=== PATIENT | female | born 1940 | race Caucasian/White ===

== ENCOUNTER 2016-10-05 16:58 | Inpatient (IN) | payer MEDICARE, OTHER ==
[~2016-10-05] VITALS: Ht 149.9 cm; Wt 82.1 kg
[2016-10-05 17:17] LABS: BASO % 1 % (0-3); EOS % 4 % (0-3); HEMATOCRIT 37.8 % (36.0-47.0); HEMOGLOBIN 12.7 g/dL (12.0-15.5); LYMPH # 1.4 x10^3/uL (1.0-4.8); LYMPH % 21 % (24-48); MEAN CORPUSCULAR HEMOGLOBIN 30 pg (25-35); MEAN CORPUSCULAR HGB CONC 34 g/dL (31-37); MEAN CORPUSCULAR VOLUME 88 fL (79-100); MONO % 9 % (0-9); NEUT % 64 % (31-73); PLATELET COUNT 256 x10^3/uL (140-400); RED BLOOD COUNT 4.28 x10^6/uL (3.50-5.40); RED CELL DISTRIBUTION WIDTH 14.2 % (11.5-14.5); WHITE BLOOD COUNT 6.6 x10^3/uL (4.0-11.0)
[2016-10-05 17:24] LABS: PROTHROMBIN TIME PATIENT 12.6 SEC (11.7-14.0)
[2016-10-05 17:28] LABS: CALCIUM 8.3 mg/dL (8.5-10.1); CREATININE 0.8 mg/dL (0.6-1.0); GFR 69.9; POTASSIUM 3.3 mmol/L (3.5-5.1)
[2016-10-05 17:34] LABS: ALBUMIN 3.3 g/dL (3.4-5.0); ALBUMIN/GLOBULIN RATIO 0.9 (1.0-1.7); TOTAL BILIRUBIN 0.4 mg/dL (0.2-1.0); TOTAL PROTEIN 6.9 g/dL (6.4-8.2)
--- NOTE | 2016-10-05 17:46 | PHYS DOC ---
Past Medical History Past Medical History: Asthma, Hypertension Past Surgical History: Cholecystectomy, Hysterectomy, Tonsillectomy Alcohol Use: Rarely Drug Use: None Adult General Chief Complaint Chief Complaint: CHEST PAIN HPI HPI Patient is a 76 year old female who presents with chest pain. The patient reports onset of pain 90 minutes prior to arrival while sitting at a slot machine. She reports substernal chest tightness with radiation to bilateral arms & back. Reports associated diaphoresis and nausea, denies shortness of breath. Denies fevers or chills, cough, lower extremity pain or swelling. Denies previous history of similar symptoms. She had one episode of diarrhea prior to EMS transport. Her pain resolved spontaneously and at this time she denies any pain. She received aspirin 324 mg in route to EMS, no other medications were given. She has history of hypertension, denies any CAD, CHF, diabetes. Nonsmoker. Denies family history of CAD. Has a PCP. Review of Systems Review of Systems Constitutional: Denies fever or chills Eyes: Denies change in visual acuity HENT: Denies nasal congestion or sore throat Respiratory: Denies cough or shortness of breath Cardiovascular: Reports chest pain, denies edema GI: Reports nausea & diarrhea. Denies abdominal pain, vomiting, bloody stools Musculoskeletal: Denies back pain or joint pain Integument: Denies rash or skin lesions Neurologic: Denies headache, focal weakness or sensory changes Current Medications Current Medications Current Medications Medications (Trade) Dose Ordered Sig/Leora Start Time Stop Time Status Last Admin Dose Admin Info (Do NOT chart on this entry -- for MONITORING) 1 each PRN DAILY PRN 10/05/16 18:15 10/07/16 18:14 Iohexol (Omnipaque 350 Mg/ml) 100 ml 1X ONCE 10/05/16 18:15 10/05/16 18:16 DC 10/05/16 18:15 100 ML Allergies Allergies Physical Exam Physical Exam Constitutional: obese, no acute distress, non-toxic appearance. HENT: Normocephalic, atraumatic, bilateral external ears normal, oropharynx moist, nose normal. Eyes: PERRLA, EOMI, conjunctiva normal, no discharge. Neck: supple, no stridor. Cardiovascular: RRR, no murmurs, no edema. Lungs & Thorax: LCTAB, no wheezing, no respiratory distress. no reproducible tenderness with palpation over the sternum Abdomen: soft, nontender, nondistended. Skin: Warm, dry, no erythema, no rash. Back: No tenderness. Extremities: No tenderness, no edema. no calf tenderness or swelling. Neurologic: Alert and oriented X 3, no focal deficits noted. Psychologic: Affect normal, judgement normal, mood normal. Current Patient Data Vital Signs Vital Signs Date Time Temp Pulse Resp B/P (MAP) Pulse Ox O2 Delivery O2 Flow Rate FiO2 10/05/16 19:02 86 18 221/104 (143) 93 Room Air 10/05/16 17:00 98.2 98.2 Lab Values Laboratory Tests Test 10/05/16 17:09 White Blood Count 6.6 x10^3/uL (4.0-11.0) Red Blood Count 4.28 x10^6/uL (3.50-5.40) Hemoglobin 12.7 g/dL (12.0-15.5) Hematocrit 37.8 % (36.0-47.0) Mean Corpuscular Volume 88 fL (79-100) Mean Corpuscular Hemoglobin 30 pg (25-35) Mean Corpuscular Hemoglobin Concent 34 g/dL (31-37) Red Cell Distribution Width 14.2 % (11.5-14.5) Platelet Count 256 x10^3/uL (140-400) Neutrophils (%) (Auto) 64 % (31-73) Lymphocytes (%) (Auto) 21 % (24-48) L Monocytes (%) (Auto) 9 % (0-9) Eosinophils (%) (Auto) 4 % (0-3) H Basophils (%) (Auto) 1 % (0-3) Neutrophils # (Auto) 4.3 x10^3uL (1.8-7.7) Lymphocytes # (Auto) 1.4 x10^3/uL (1.0-4.8) Monocytes # (Auto) 0.6 x10^3/uL (0.0-1.1) Eosinophils # (Auto) 0.3 x10^3/uL (0.0-0.7) Basophils # (Auto) 0.0 x10^3/uL (0.0-0.2) Prothrombin Time 12.6 SEC (11.7-14.0) Prothrombin Time INR 1.0 (0.8-1.1) PTT 27 SEC (24-38) Sodium Level 141 mmol/L (136-145) Potassium Level 3.3 mmol/L (3.5-5.1) L Chloride Level 104 mmol/L (98-107) Carbon Dioxide Level 27 mmol/L (21-32) Anion Gap 10 (6-14) Blood Urea Nitrogen 9 mg/dL (7-20) Creatinine 0.8 mg/dL (0.6-1.0) Estimated GFR (Cockcroft-Gault) 69.9 BUN/Creatinine Ratio 11 (6-20) Glucose Level 127 mg/dL (70-99) H Calcium Level 8.3 mg/dL (8.5-10.1) L Total Bilirubin 0.4 mg/dL (0.2-1.0) Aspartate Amino Transferase (AST) 22 U/L (15-37) Alanine Aminotransferase (ALT) 18 U/L (14-59) Alkaline Phosphatase 84 U/L (46-116) Troponin I Quantitative < 0.017 ng/mL (0.000-0.055) WO-Sva-G-Type Natriuretic Peptide 121 pg/mL (0-449) Total Protein 6.9 g/dL (6.4-8.2) Albumin 3.3 g/dL (3.4-5.0) L Albumin/Globulin Ratio 0.9 (1.0-1.7) L Lipase 153 U/L (73-393) Laboratory Tests 10/05/16 17:09 Laboratory Tests 10/05/16 17:09 EKG EKG interpreted by me: NSR rate 83, no acute ST/T wave changes, Q waves in inferior leads, normal intervals, no ectopy.[] Radiology/Procedures Radiology/Procedures PROCEDURE: CT ANGIOGRAPHY CHEST PROCEDURE CTA of the chest with and without contrast HISTORY Chest pain with hypertension. Possible dissection. TECHNIQUE Noncontrast helical CT scanning of the chest was performed. After IV infusion of 90 cc of Omnipaque 300, repeat helical CT scanning of the chest was performed using the thoracic aortic protocol. 2D sagittal and coronal MIP reconstructions were generated. One or more of the following individualized dose reduction techniques were utilized for this study: 1. Automated exposure control 2. Adjustment of the mA and/or kV according to patient size 3. Use of iterative reconstruction technique COMPARISON None available. FINDINGS No pulmonary embolism is evident. No thoracic aortic dissection or aneurysmal dilatation is evident. Calcified atheromatous disease of the thoracic aorta is seen. The caliber of the ascending aorta is 3.9 centimeters. The heart size is normal and no pericardial effusion is seen. Calcified atheromatous disease of the coronary arteries is seen. Calcified mediastinal lymph nodes are seen due to old granulomatous disease. Otherwise no abnormally enlarged thoracic lymphadenopathy is seen. Postoperative changes of the stomach are seen. Small hiatal hernia is evident. There is wall thickening of the distal esophagus. There is a round enhancing nodule of the spleen most likely representing a hemangioma. This measures 2.8 centimeters. Spleen is not enlarged otherwise. There is some linear scarring or atelectasis within the right upper lobe. No lung consolidation or lung mass is seen otherwise. No pleural effusion or pneumothorax is evident. The proximal bronchial tree is patent. No adrenal mass is seen. No osteolytic process is seen. No compression fracture of the thoracic spine is evident. IMPRESSION Mild linear scarring or atelectasis of the right upper lobe. No thoracic aortic dissection or aneurysmal dilatation is seen. No pulmonary embolism. Heart size is normal. Calcified atheromatous disease of the coronary arteries. Small hiatal hernia. There is wall thickening of the distal esophagus which may be seen with reflux esophagitis. 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 Electronically signed by: Bryson Nash MD (October 05, 2016 19:40:36) DICTATED and SIGNED BY: BRYSON NASH MD DATE: 10/05/161939 CXR: interpreted by me: no cardiomegaly, no infiltrate, no pneumothorax, ? wide mediastinum, no previous for comparison [] Course & Med Decision Making Course & Med Decision Making Pertinent Labs and Imaging studies reviewed. (See chart for details) Patient presents with chest pain. Aspirin administered by EMS. Pain resolved at time of arrival. Obtained labs, EKG, chest x-ray, CT chest to rule out dissection. No acute abnormalities identified. Patient presented with hypertension, persistent with recheck here in the emergency department. Gave hydralazine. She had persistently elevated blood pressure as high as 239/112. Recommended admission to the hospital for further evaluation of chest pain and management of accelerated hypertension. Patient agrees with plan of care. Discussed with Dr. Klein who agrees to admit to inpatient status, cardiology consult to Dr. McSweyn. The patient is admitted in stable condition. [] Dragon Disclaimer Dragon Disclaimer This electronic medical record was generated, in whole or in part, using a voice recognition dictation system. Departure Departure Impression: Primary Impression: Chest pain Additional Impressions: Accelerated hypertension Hypokalemia Disposition: ADMITTED INPATIENT Admitting Physician: Sasha Klein Condition: STABLE Problem Qualifiers KATHLEEN SAMUEL MD October 05, 2016 17:46
--- NOTE | 2016-10-05 17:54 | EKG ---
[facility] [address] [place] [address] Test Date: 2016-10-05 Test Time: 17:09:02 Pat Name: MARIA D MCKOY Department: Room: Gender: F [place] Hand: : 1940 Requested By: KATHLEEN SAMUEL Order Number: [id number] Reading MD: Caty Lange Measurements Intervals [place] Rate: 83 P: 19 CO: 210 QRS: -13 QRSD: 84 T: 1 QT: 372 QTc: 443 Interpretive Statements SINUS RHYTHM LEFTWARD AXIS QRS(T) CONTOUR ABNORMALITY CONSISTENT WITH INFERIOR INFARCT AGE UNDETERMINED ABNORMAL ECG RI6.01 No previous ECG available for comparison Electronically Signed On 10-07-2016 17:53:03 CDT by Caty Lange
[2016-10-05] MEDS ORDERED: CONTRAST GIVEN MC PRN (18:15)
[2016-10-05] MEDS ORDERED: IOHEXOL 350 MG/ML 100 ML VIAL. IV ONE (18:15)
[2016-10-05] MEDS ORDERED: hydrALAZINE 20 MG/ML VIAL. IVP ONE (19:30)
--- NOTE | 2016-10-05 19:41 | RAD ---
PROCEDURE CTA of the chest with and without contrast HISTORY Chest pain with hypertension. Possible dissection. TECHNIQUE Noncontrast helical CT scanning of the chest was performed. After IV infusion of 90 cc of Omnipaque 300, repeat helical CT scanning of the chest was performed using the thoracic aortic protocol. 2D sagittal and coronal MIP reconstructions were generated. One or more of the following individualized dose reduction techniques were utilized for this study: 1. Automated exposure control 2. Adjustment of the mA and/or kV according to patient size 3. Use of iterative reconstruction technique COMPARISON None available. FINDINGS No pulmonary embolism is evident. No thoracic aortic dissection or aneurysmal dilatation is evident. Calcified atheromatous disease of the thoracic aorta is seen. The caliber of the ascending aorta is 3.9 centimeters. The heart size is normal and no pericardial effusion is seen. Calcified atheromatous disease of the coronary arteries is seen. Calcified mediastinal lymph nodes are seen due to old granulomatous disease. Otherwise no abnormally enlarged thoracic lymphadenopathy is seen. Postoperative changes of the stomach are seen. Small hiatal hernia is evident. There is wall thickening of the distal esophagus. There is a round enhancing nodule of the spleen most likely representing a hemangioma. This measures 2.8 centimeters. Spleen is not enlarged otherwise. There is some linear scarring or atelectasis within the right upper lobe. No lung consolidation or lung mass is seen otherwise. No pleural effusion or pneumothorax is evident. The proximal bronchial tree is patent. No adrenal mass is seen. No osteolytic process is seen. No compression fracture of the thoracic spine is evident. IMPRESSION Mild linear scarring or atelectasis of the right upper lobe. No thoracic aortic dissection or aneurysmal dilatation is seen. No pulmonary embolism. Heart size is normal. Calcified atheromatous disease of the coronary arteries. Small hiatal hernia. There is wall thickening of the distal esophagus which may be seen with reflux esophagitis. 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 Electronically signed by: Zac Nash MD (October 05, 2016 19:40:36)
[2016-10-05] MEDS ORDERED: NITROGLYCERIN SUBLINGUAL 0.4 MG BOTTLE OF 25. SL PRN (20:15)
[2016-10-05] MEDS ORDERED: MORPHINE SULFATE 2 MG/ML DISP.SYRIN. IV PRN (20:15)
[2016-10-05] MEDS ORDERED: ACETAMINOPHEN 325 MG TABLET. PO PRN (20:15)
[2016-10-05] MEDS ORDERED: ONDANSETRON PF 4 MG/2 ML VIAL. IV PRN (20:15)
[2016-10-05 20:39] VITALS: BP 178/99
[2016-10-05] MEDS ORDERED: BUDE180A IH (20:58)
[2016-10-05] MEDS ORDERED: LOSA100T6 PO (20:59)
[2016-10-05] MEDS ORDERED: FLUT9.9S NS (20:59)
[2016-10-05] MEDS ORDERED: DIPH25CA58 PO (21:01)
[2016-10-05] MEDS ORDERED: diphenhydrAMINE HCL 25 MG CAPSULE PO PRN (21:30)
[2016-10-05] MEDS ORDERED: LOSARTAN POTASSIUM 50 MG TABLET. PO SCH (21:30)
[2016-10-05] MEDS ORDERED: POTASSIUM CHLORIDE 20 MEQ TABLET.ER. PO ONE (21:30)
[2016-10-05] MEDS ORDERED: LABETALOL 20 MG/4 ML DISP.SYRIN. IVP PRN (21:30)
[2016-10-05] MEDS ORDERED: POTASSIUM CHLORIDE 20 MEQ/15 ML ORAL LIQUID. PO ONE (22:45)
[2016-10-05 23:26] VITALS: BP 145/83
--- NOTE | 2016-10-06 00:22 | ACF ---
Admission Forms Criteria CHEST PAIN Clinical Indications for Admission to Inpatient Care (Place 'X' for any and all applicable criteria): Admission is indicated for chest pain and ANY ONE of the following(1)(2)(3)(4)(5 ): [ ]I. Angina with acute coronary syndrome (Also use Myocardial Infarction or Angina guideline) [ ]II. Hemodynamic instability [ ]III. Angina needing acute intervention as indicated by ALL of the following( 11)(12): [ ]a) Unstable angina is present as indicated by angina that is ANY ONE of the following: [ ]i) New onset [ ]ii) Nocturnal [ ]iii) Prolonged at rest [ ]iv) Progressive [ ]b) Angina warrants acute intervention as indicated by ANY ONE of the following: [ ]i) Recurrent angina (e.g, not responding as previously to treatment) [ ]ii) Angina at rest or with low-level activities despite initial medical therapy [ ]iii) New or presumably new ST-segment depression on ECG [ ]iv) Signs or symptoms of heart failure (eg, dyspnea, pulmonary edema) [ ]v) New or worsening mitral regurgitation [ ]vi) Hemodynamic instability [ ]vii) Dangerous arrhythmia (eg, sustained ventricular tachycardia) [ ]viii) History of percutaneous coronary intervention within 6 months [ ]ix) History of coronary artery bypass graft surgery [ ]x) TONY risk score of 2 or greater[A] [ ]xi) History of Diabetes(14) [ ]xii) High-risk cardiac ischemia findings on noninvasive testing (e.g, echocardiogram, treadmill testing, nuclear scan) [ ]xiii) Chronic renal insufficiency (ie, estimated GFR less than 60 mL/min/1.732m) [ ]xiv) Left ventricular ejection fraction less than 40% [ ]IV. Evidence of WI (eg, cardiac biomarkers positive, ST-segment elevation on ECG) also use Myocardial Infarction Criteria Form. [ ]V. Pulmonary edema [ ]. Respiratory distress [ ]VII. Chest pain indicative of serious diagnosis other than coronary artery disease (eg, aortic dissection) [ ]VIII. Contraindications and/or Inappropriate clinical situations for Observational Care in patients with Chest Pain, when ANY ONE of the following is required: [ ]a) Patient with risk factor for pulmonary embolism, acute coronary syndrome and myocardial infarction (18) [ ]b) Patient with Pulmonary embolism require an average LOS of 4.3 days, therefore emergency department observation management is inappropriate 18,23 [ ]c) Painful condition/s in the elderly, have the highest rate of recidivism after emergency department observation management (10.8%) 20,21,22 [ ]d) Elevated cardiac biomarker requires intensive and exhaustive care (19) [X]IX. General contraindications and/or Inappropriate clinical situations for Observational Care in patients with Chest Pain, when ANY ONE of the following is required: [X]a) Prediction of prolongation of LOS based on ANY ONE of the following may be considered as a contraindication for observational care 2, 3, 4, 5, 6, 7, 8, 9, 10, 11 [X]i) Age > 65 yrs. [ ]ii) Patient arriving by ambulance [ ]iii) Patient with high acuity [ ]iv) Patient requiring vital sign monitoring [X]v) Patient on IV medication [ ]b) Systolic blood pressures 180mmHg 3,12 [ ]c) Patient with altered mental status including delirium and other alteration of consciousness, (3) [ ]d) Patient whose discharge disposition will be to a half-way home or rehabilitation home should not be managed in Emergency Department Observation Unit. CMS rule requires 3 days hospital stay before such placement. 3,13 [ ]e) Patient with failure to thrive due to broad array of etiologies 3,16,17 [ ]f) Inability to ambulate 3,14 Extended stay beyond goal length of stay may be needed for (1)(28): [ ]a) Specific condition diagnosed after evaluation (eg, pulmonary embolism, aortic dissection) [ ]b) Unstable angina [ ]c) Continued suspicion of acute coronary syndrome with inability to complete needed cardiac evaluation (eg, patient clinically unable to undergo stress testing) [ ]d) Myocardial infarction (Contents from ANGINA and CHEST PAIN clinical indications for admission to inpatient care have been integrated in this form) The original [facility] content created by [employer] has been revised. The portions of the content which have been revised are identified through the use of italic text or in bold, and [facility] has neither reviewed nor approved the modified material. All other unmodified content is copyright [employer]. Please see references footnoted in the original [facility] edition 2016 Admission Criteria Met?: Yes MAG THOMPSON October 06, 2016 00:22
[2016-10-06 03:45] VITALS: BP 130/72
[2016-10-06 07:00] VITALS: BP 153/85
[2016-10-06] MEDS: BUDESONIDE 0.5 MG/2 ML NEBU. NEB SCH ×2 (08:00→20:00)
[2016-10-06] MEDS: FLUTICASONE 50MCG/NASAL SPRAY 16GM BOTTLE. NS SCH (08:01)
--- NOTE | 2016-10-06 09:33 | RAD ---
Indication chest pain. Hypertension. Asthma. Difficulty breathing. A single view of the chest was obtained. No prior imaging of the chest is available. Heart size is within normal limits. Slightly tortuous thoracic aorta is noted. The lungs are clear. There is no significant pleural fluid or pneumothorax. Postoperative changes are noted in the upper abdomen. IMPRESSION:: No acute finding seen in the chest
--- NOTE | 2016-10-06 09:53 | PDOC1 ---
History and Physical Date of Admission Date of Admission DATE: 10/06/16 TIME: 09:53 Identification/Chief Complaint Chief Complaint chest pain Problems: Source Source: Chart review, Patient History of Present Illness History of Present Illness [place]. [place], when she had a new onset of chest pain, mid-sternal chest pain, w/ dyspnea. She has asthma, and felt that her asthma was poorly treated, she had been using her rescue inhaler more often 2 weeks ago, but otherwise compliant with her pulmicort her chest pain was 6/10, but is now resolved, she now complains of headache, and would like her home meds Past Medical History Cardiovascular: No pertinent hx Pulmonary: No pertinent hx GI: No pertinent hx Heme/Onc: No pertinent hx Hepatobiliary: No pertinent hx Psych: No pertinent hx Renal/: No pertinent hx Endocrine: No pertinent hx Dermatology: No pertinent hx Family History Family History: No Significant Social History Smoke: No (quit 50 year ago) ALCOHOL: none Drugs: None Current Problem List Problem List Problems Medical Problems: (1) Accelerated hypertension Status: Acute (2) Chest pain Status: Acute (3) Hypokalemia Status: Acute Problems: Current Medications Current Medications Current Medications Iohexol (Omnipaque 350 Mg/ml) 100 ml 1X ONCE IV Last administered on 10/05/16 18:15; Start 10/05/16 at 18:15; Stop 10/05/16 at 18:16; Status DC Info (Do NOT chart on this entry -- for MONITORING) 1 each PRN DAILY PRN MC SEE COMMENTS; Start 10/05/16 at 18:15; Stop 10/07/16 at 18:14 Hydralazine HCl (Apresoline) 10 mg 1X ONCE IVP Last administered on 10/05/16 19:53; Start 10/05/16 at 19:30; Stop 10/05/16 at 19:31; Status DC Ondansetron HCl (Zofran) 4 mg PRN Q8HRS PRN IV NAUSEA/VOMITING; Start 10/05/16 at 20:15; Stop 10/06/16 at 20:14 Morphine Sulfate 2 mg PRN Q2HR PRN IV PAIN; Start 10/05/16 at 20:15; Stop at 20:14 Acetaminophen (Tylenol) 650 mg PRN Q4HRS PRN PO FEVER Last administered on 00:22; Start 10/05/16 at 20:15; Stop 10/06/16 at 20:14 Nitroglycerin (Nitrostat) 0.4 mg PRN Q5MIN PRN SL CHEST PAIN; Start 10/05/16 at 20:15; Stop 10/06/16 at 20:14 Labetalol HCl (Normodyne) 20 mg PRN Q2HR PRN IVP HYPERTENSION, SEE COMMENTS; Start 10/05/16 at 21:30 Potassium Chloride (Klor-Con) 40 meq 1X ONCE PO Last administered on 10/05/16 21:34; Start 10/05/16 at 21:30; Stop 10/05/16 at 21:31; Status DC Diphenhydramine HCl (Benadryl) 25 mg PRN QHS PRN PO INSOMNIA Last administered on 10/05/16 21:34; Start 10/05/16 at 21:30 Fluticasone Propionate (Flonase) 2 spray DAILY NS Last administered on 08:01; Start 10/06/16 at 09:00 Losartan Potassium (Cozaar) 100 mg HS PO Last administered on 10/05/16 21:34; Start 10/05/16 at 21:30 Budesonide (Pulmicort) 0.5 mg RTBID NEB ; Start 10/06/16 at 08:00 Potassium Chloride (KCl Oral Soln) 40 meq 1X ONCE PO ; Start 10/05/16 at 22:45; Stop 10/05/16 at 22:46; Status DC Active Scripts Active Reported Benadryl (Diphenhydramine Hcl) 25 Mg Capsule 1 Cap PO QHS PRN Flonase Allergy Relief (Fluticasone Propionate) 9.9 Ml [place].susp 2 Sprays NS DAILY Losartan Potassium 100 Mg Tablet 100 Mg PO HS Pulmicort Flexhaler (Budesonide) 180 Mcg Aer.pow.ba 1 Puff IH BID Allergies Allergies: Coded Allergies: cephalexin (Verified Allergy, Intermediate, 10/05/16) codeine (Verified Adverse Reaction, Mild, violently ill, 10/05/16) ROS General: No: Chills, Night Sweats, Fatigue, Malaise, Appetite, Other PSYCHOLOGICAL ROS: No: Anxiety, Behavioral Disorder, Concentration difficultie , Decreased libido, Depression, Disorientation, Hallucinations, Hostility, Irritablity, Memory difficulties, Mood Swings, Obsessive thoughts, Physical abuse, Sexual abuse, Sleep disturbances, Suicidal ideation, Other Eyes: No Blurry vision, No Decreased vision, No Double vision, No Dry eyes, No Excessive tearing, No Eye Pain, No Itchy Eyes, No Loss of vision, No Photophobia , No Scotomata, No Uses contacts, No Uses glasses, No Other HEENT: No: Heacaches, Visual Changes, Hearing change, Nasal congestion, Nasal discharge, Oral lesions, Sinus pain, Sore Throat, Epistaxis, Sneezing, Snoring, Tinnitus, Vertigo, Vocal changes, Other Respiratory: No: Cough, Hemoptysis, Orthopnea, Pleuritic Pain, Shortness of breath, SOB with excertion, Sputum Changes, Stridor, Tachypnea, Wheezing, Other Cardiovascular: No Chest Pain, No Palpitations, No Orthopnea, No Paroxysmal Noc. Dyspnea, No Edema, No Lt Headedness, No Other Gastrointestinal: No Nausea, No Vomiting, No Abdominal Pain, No Diarrhea, No Constipation, No Melena, No Hematochezia, No Other Genitourinary: No Dysuria, No Frequency, No Incontinence, No Hematuria, No Retention, No Discharge, No Urgency, No Pain, No Flank Pain, No Other, No , No , No , No , No , No , No Musculoskeletal: No Gait Disturbance, No Joint Pain, No Joint Stiffness, No Joint Swelling, No Muscle Pain, No Muscular Weakness, No Pain In:, No Swelling In:, No Other Neurological: No Behavorial Changes, No Bowel/Bladder ControlChng, No Confusion , No Dizziness, No Gait Disturbance, No Headaches, No Impaired Coord/balance, No Memory Loss, No Numbness/Tingling, No Seizures, No Speech Problems, No Tremors, No Visual Changes, No Weakness, No Other Skin: No Dry Skin, No Eczema, No Hair Changes, No Lumps, No Mole Changes, No Mottling, No Nail Changes, No Pruritus, No Rash, No Skin Lesion Changes, No Other, No Acne Physical Exam General: Alert, Oriented X3, Cooperative HEENT: Atraumatic, PERRLA Lungs: Clear to auscultation Abdomen: Normal bowel sounds, Soft Rectal Exam: not examined Extremities: No clubbing, No cyanosis, No edema Skin: No breakdown Neuro: Normal speech, Strength at 5/5 X4 ext, Normal tone Psych/Mental Status: Mental status NL, Mood NL Vitals Vitals Vital Signs Date Time Temp Pulse Resp B/P (MAP) Pulse Ox O2 Delivery O2 Flow Rate FiO2 10/06/16 08:26 Room Air 10/06/16 07:00 98.2 79 18 153/85 (107) 99 98.2 Labs Labs Laboratory Tests Test 10/05/16 17:09 10/06/16 02:30 10/06/16 07:40 White Blood Count 6.6 x10^3/uL (4.0-11.0) Red Blood Count 4.28 x10^6/uL (3.50-5.40) Hemoglobin 12.7 g/dL (12.0-15.5) Hematocrit 37.8 % (36.0-47.0) Mean Corpuscular Volume 88 fL (79-100) Mean Corpuscular Hemoglobin 30 pg (25-35) Mean Corpuscular Hemoglobin Concent 34 g/dL (31-37) Red Cell Distribution Width 14.2 % (11.5-14.5) Platelet Count 256 x10^3/uL (140-400) Neutrophils (%) (Auto) 64 % (31-73) Lymphocytes (%) (Auto) 21 % (24-48) Monocytes (%) (Auto) 9 % (0-9) Eosinophils (%) (Auto) 4 % (0-3) Basophils (%) (Auto) 1 % (0-3) Neutrophils # (Auto) 4.3 x10^3uL (1.8-7.7) Lymphocytes # (Auto) 1.4 x10^3/uL (1.0-4.8) Monocytes # (Auto) 0.6 x10^3/uL (0.0-1.1) Eosinophils # (Auto) 0.3 x10^3/uL (0.0-0.7) Basophils # (Auto) 0.0 x10^3/uL (0.0-0.2) Prothrombin Time 12.6 SEC (11.7-14.0) Prothromb Time International Ratio 1.0 (0.8-1.1) Activated Partial Thromboplast Time 27 SEC (24-38) Sodium Level 141 mmol/L (136-145) Potassium Level 3.3 mmol/L (3.5-5.1) Chloride Level 104 mmol/L (98-107) Carbon Dioxide Level 27 mmol/L (21-32) Anion Gap 10 (6-14) Blood Urea Nitrogen 9 mg/dL (7-20) Creatinine 0.8 mg/dL (0.6-1.0) Estimated GFR (Cockcroft-Gault) 69.9 BUN/Creatinine Ratio 11 (6-20) Glucose Level 127 mg/dL (70-99) Calcium Level 8.3 mg/dL (8.5-10.1) Total Bilirubin 0.4 mg/dL (0.2-1.0) Aspartate Amino Transf (AST/SGOT) 22 U/L (15-37) Alanine Aminotransferase (ALT/SGPT) 18 U/L (14-59) Alkaline Phosphatase 84 U/L (46-116) Troponin I Quantitative < 0.017 ng/mL (0.000-0.055) 0.103 ng/mL (0.000-0.055) 0.047 ng/mL (0.000-0.055) BS-Kog-J-Type Natriuretic Peptide 121 pg/mL (0-449) Total Protein 6.9 g/dL (6.4-8.2) Albumin 3.3 g/dL (3.4-5.0) Albumin/Globulin Ratio 0.9 (1.0-1.7) Lipase 153 U/L (73-393) Laboratory Tests Test 10/05/16 17:09 10/06/16 02:30 10/06/16 07:40 White Blood Count 6.6 x10^3/uL (4.0-11.0) Red Blood Count 4.28 x10^6/uL (3.50-5.40) Hemoglobin 12.7 g/dL (12.0-15.5) Hematocrit 37.8 % (36.0-47.0) Mean Corpuscular Volume 88 fL (79-100) Mean Corpuscular Hemoglobin 30 pg (25-35) Mean Corpuscular Hemoglobin Concent 34 g/dL (31-37) Red Cell Distribution Width 14.2 % (11.5-14.5) Platelet Count 256 x10^3/uL (140-400) Neutrophils (%) (Auto) 64 % (31-73) Lymphocytes (%) (Auto) 21 % (24-48) Monocytes (%) (Auto) 9 % (0-9) Eosinophils (%) (Auto) 4 % (0-3) Basophils (%) (Auto) 1 % (0-3) Neutrophils # (Auto) 4.3 x10^3uL (1.8-7.7) Lymphocytes # (Auto) 1.4 x10^3/uL (1.0-4.8) Monocytes # (Auto) 0.6 x10^3/uL (0.0-1.1) Eosinophils # (Auto) 0.3 x10^3/uL (0.0-0.7) Basophils # (Auto) 0.0 x10^3/uL (0.0-0.2) Prothrombin Time 12.6 SEC (11.7-14.0) Prothromb Time International Ratio 1.0 (0.8-1.1) Activated Partial Thromboplast Time 27 SEC (24-38) Sodium Level 141 mmol/L (136-145) Potassium Level 3.3 mmol/L (3.5-5.1) Chloride Level 104 mmol/L (98-107) Carbon Dioxide Level 27 mmol/L (21-32) Anion Gap 10 (6-14) Blood Urea Nitrogen 9 mg/dL (7-20) Creatinine 0.8 mg/dL (0.6-1.0) Estimated GFR (Cockcroft-Gault) 69.9 BUN/Creatinine Ratio 11 (6-20) Glucose Level 127 mg/dL (70-99) Calcium Level 8.3 mg/dL (8.5-10.1) Total Bilirubin 0.4 mg/dL (0.2-1.0) Aspartate Amino Transf (AST/SGOT) 22 U/L (15-37) Alanine Aminotransferase (ALT/SGPT) 18 U/L (14-59) Alkaline Phosphatase 84 U/L (46-116) Troponin I Quantitative < 0.017 ng/mL (0.000-0.055) 0.103 ng/mL (0.000-0.055) 0.047 ng/mL (0.000-0.055) GL-Bmg-S-Type Natriuretic Peptide 121 pg/mL (0-449) Total Protein 6.9 g/dL (6.4-8.2) Albumin 3.3 g/dL (3.4-5.0) Albumin/Globulin Ratio 0.9 (1.0-1.7) Lipase 153 U/L (73-393) VTE Prophylaxis Ordered VTE Prophylaxis Devices: Yes VTE Pharmacological Prophylaxi: No Assessment/Plan Assessment/Plan chest pain, angina, r/o ACS accelerated htn, improved, IV lopressor given start home losartan asthma, nebs X2 here, would benefit form outpatient pulm consult obesity, BMI 36 VANITA QUIÑONEZ MD October 06, 2016 09:53
[2016-10-06] MEDS ORDERED: diphenhydrAMINE HCL 25 MG CAPSULE PO PRN (10:00)
[2016-10-06] MEDS ORDERED: BUDESONIDE 0.5 MG/2 ML NEBU. NEB SCH ×2 (10:00→20:00)
[2016-10-06] MEDS ORDERED: BUDESONIDE 0.5 MG/2 ML NEBU. NEB ONE (10:15)
[2016-10-06 11:00] VITALS: BP 153/85
--- NOTE | 2016-10-06 11:28 | PDOC2 ---
CONSULT Date of Consult Date of Consult DATE: 10/06/16 TIME: 11:21 Reason for Consult Reason for Consult: chest pain Referring Physician Referring Physician: Dr. Beaulieu Identification/Chief Complaint Chief Complaint Chest pain Source Source: Patient History of Present Illness Reason for Visit: The patient is a 76-year-old female who developed episodes of chest pain and pressure last evening [place] a [place]. Patient was brought to the emergency room and evaluated. Initial EKG showed no acute ischemic changes. Initial troponins have been normal. Overnight the patient has remained pain-free. She denies any history of coronary artery disease, congestive heart failure or cardiac arrhythmias. CT scan of the chest showed no evidence of aortic dissection, no pulmonary emboli and a small hiatal hernia. Past Medical History Cardiovascular: No pertinent hx, HTN Pulmonary: No pertinent hx, Asthma GI: No pertinent hx Heme/Onc: No pertinent hx Hepatobiliary: No pertinent hx Psych: No pertinent hx Renal/: No pertinent hx Endocrine: No pertinent hx Dermatology: No pertinent hx Past Surgical History Past Surgical History: Cholecystectomy, Tonsillectomy, Hysterectomy Family History Family History: No Significant, Heart Disease Social History Quit (quit 50 year ago) ALCOHOL: occassional Drugs: None Current Problem List Problem List Problems Medical Problems: (1) Accelerated hypertension Status: Acute (2) Chest pain Status: Acute (3) Hypokalemia Status: Acute Current Medications Current Medications Current Medications Iohexol (Omnipaque 350 Mg/ml) 100 ml 1X ONCE IV Last administered on 10/05/16 18:15; Start 10/05/16 at 18:15; Stop 10/05/16 at 18:16; Status DC Info (Do NOT chart on this entry -- for MONITORING) 1 each PRN DAILY PRN MC SEE COMMENTS; Start 10/05/16 at 18:15; Stop 10/07/16 at 18:14 Hydralazine HCl (Apresoline) 10 mg 1X ONCE IVP Last administered on 10/05/16 19:53; Start 10/05/16 at 19:30; Stop 10/05/16 at 19:31; Status DC Ondansetron HCl (Zofran) 4 mg PRN Q8HRS PRN IV NAUSEA/VOMITING; Start 10/05/16 at 20:15; Stop 10/06/16 at 20:14 Morphine Sulfate 2 mg PRN Q2HR PRN IV PAIN; Start 10/05/16 at 20:15; Stop at 20:14 Acetaminophen (Tylenol) 650 mg PRN Q4HRS PRN PO FEVER Last administered on 00:22; Start 10/05/16 at 20:15; Stop 10/06/16 at 20:14 Nitroglycerin (Nitrostat) 0.4 mg PRN Q5MIN PRN SL CHEST PAIN; Start 10/05/16 at 20:15; Stop 10/06/16 at 20:14 Labetalol HCl (Normodyne) 20 mg PRN Q2HR PRN IVP HYPERTENSION, SEE COMMENTS; Start 10/05/16 at 21:30 Potassium Chloride (Klor-Con) 40 meq 1X ONCE PO Last administered on 10/05/16 21:34; Start 10/05/16 at 21:30; Stop 10/05/16 at 21:31; Status DC Diphenhydramine HCl (Benadryl) 25 mg PRN QHS PRN PO INSOMNIA Last administered on 10/05/16 21:34; Start 10/05/16 at 21:30; Stop 10/06/16 at 10:26; Status DC Fluticasone Propionate (Flonase) 2 spray DAILY NS Last administered on 08:01; Start 10/06/16 at 09:00 Losartan Potassium (Cozaar) 100 mg HS PO Last administered on 10/05/16 21:34; Start 10/05/16 at 21:30; Stop 10/06/16 at 10:26; Status DC Budesonide (Pulmicort) 0.5 mg RTBID NEB ; Start 10/06/16 at 08:00 Potassium Chloride (KCl Oral Soln) 40 meq 1X ONCE PO ; Start 10/05/16 at 22:45; Stop 10/05/16 at 22:46; Status DC Diphenhydramine HCl (Benadryl) 25 mg PRN QHS PRN PO COMM; Start 10/06/16 at 10: 00 Budesonide (Pulmicort) 0.5 mg RTBID NEB Last administered on 10/06/16 10:08; Start 10/06/16 at 10:00; Stop 10/06/16 at 10:26; Status DC Fluticasone Propionate (Flonase) 2 spray DAILY NS ; Start 10/07/16 at 09:00; Stop 10/07/16 at 09:00; Status DC Losartan Potassium (Cozaar) 100 mg DAILY PO ; Start 10/06/16 at 10:00 Budesonide (Pulmicort) 0.5 mg RTBID NEB ; Start 10/06/16 at 20:00 Budesonide (Pulmicort) 0.5 mg 1X ONCE NEB ; Start 10/06/16 at 10:15; Stop at 10:25; Status DC Active Scripts Active Reported Benadryl (Diphenhydramine Hcl) 25 Mg Capsule 1 Cap PO QHS PRN Flonase Allergy Relief (Fluticasone Propionate) 9.9 Ml [place].susp 2 Sprays NS DAILY Losartan Potassium 100 Mg Tablet 100 Mg PO HS Pulmicort Flexhaler (Budesonide) 180 Mcg Aer.pow.ba 1 Puff IH BID Allergies Allergies: Coded Allergies: cephalexin (Verified Allergy, Intermediate, 10/05/16) codeine (Verified Adverse Reaction, Mild, violently ill, 10/05/16) ROS Respiratory: YES: SOB with excertion Cardiovascular: yes Chest Pain Gastrointestinal: Yes Nausea Physical Exam General: No acute distress HEENT: Atraumatic Lungs: Clear to auscultation Heart: Other (1/6 systolic murmur) Abdomen: Normal bowel sounds Extremities: No clubbing Vitals VITALS Vital Signs Date Time Temp Pulse Resp B/P (MAP) Pulse Ox O2 Delivery O2 Flow Rate FiO2 10/06/16 10:14 100 Room Air 10/06/16 07:00 98.2 79 18 153/85 (107) 98.2 Labs Labs Laboratory Tests Test 10/05/16 17:09 10/06/16 02:30 10/06/16 07:40 White Blood Count 6.6 x10^3/uL (4.0-11.0) Red Blood Count 4.28 x10^6/uL (3.50-5.40) Hemoglobin 12.7 g/dL (12.0-15.5) Hematocrit 37.8 % (36.0-47.0) Mean Corpuscular Volume 88 fL (79-100) Mean Corpuscular Hemoglobin 30 pg (25-35) Mean Corpuscular Hemoglobin Concent 34 g/dL (31-37) Red Cell Distribution Width 14.2 % (11.5-14.5) Platelet Count 256 x10^3/uL (140-400) Neutrophils (%) (Auto) 64 % (31-73) Lymphocytes (%) (Auto) 21 % (24-48) Monocytes (%) (Auto) 9 % (0-9) Eosinophils (%) (Auto) 4 % (0-3) Basophils (%) (Auto) 1 % (0-3) Neutrophils # (Auto) 4.3 x10^3uL (1.8-7.7) Lymphocytes # (Auto) 1.4 x10^3/uL (1.0-4.8) Monocytes # (Auto) 0.6 x10^3/uL (0.0-1.1) Eosinophils # (Auto) 0.3 x10^3/uL (0.0-0.7) Basophils # (Auto) 0.0 x10^3/uL (0.0-0.2) Prothrombin Time 12.6 SEC (11.7-14.0) Prothromb Time International Ratio 1.0 (0.8-1.1) Activated Partial Thromboplast Time 27 SEC (24-38) Sodium Level 141 mmol/L (136-145) Potassium Level 3.3 mmol/L (3.5-5.1) Chloride Level 104 mmol/L (98-107) Carbon Dioxide Level 27 mmol/L (21-32) Anion Gap 10 (6-14) Blood Urea Nitrogen 9 mg/dL (7-20) Creatinine 0.8 mg/dL (0.6-1.0) Estimated GFR (Cockcroft-Gault) 69.9 BUN/Creatinine Ratio 11 (6-20) Glucose Level 127 mg/dL (70-99) Calcium Level 8.3 mg/dL (8.5-10.1) Total Bilirubin 0.4 mg/dL (0.2-1.0) Aspartate Amino Transf (AST/SGOT) 22 U/L (15-37) Alanine Aminotransferase (ALT/SGPT) 18 U/L (14-59) Alkaline Phosphatase 84 U/L (46-116) Troponin I Quantitative < 0.017 ng/mL (0.000-0.055) 0.103 ng/mL (0.000-0.055) 0.047 ng/mL (0.000-0.055) OZ-Qah-L-Type Natriuretic Peptide 121 pg/mL (0-449) Total Protein 6.9 g/dL (6.4-8.2) Albumin 3.3 g/dL (3.4-5.0) Albumin/Globulin Ratio 0.9 (1.0-1.7) Lipase 153 U/L (73-393) Laboratory Tests Test 10/05/16 17:09 10/06/16 02:30 10/06/16 07:40 White Blood Count 6.6 x10^3/uL (4.0-11.0) Red Blood Count 4.28 x10^6/uL (3.50-5.40) Hemoglobin 12.7 g/dL (12.0-15.5) Hematocrit 37.8 % (36.0-47.0) Mean Corpuscular Volume 88 fL (79-100) Mean Corpuscular Hemoglobin 30 pg (25-35) Mean Corpuscular Hemoglobin Concent 34 g/dL (31-37) Red Cell Distribution Width 14.2 % (11.5-14.5) Platelet Count 256 x10^3/uL (140-400) Neutrophils (%) (Auto) 64 % (31-73) Lymphocytes (%) (Auto) 21 % (24-48) Monocytes (%) (Auto) 9 % (0-9) Eosinophils (%) (Auto) 4 % (0-3) Basophils (%) (Auto) 1 % (0-3) Neutrophils # (Auto) 4.3 x10^3uL (1.8-7.7) Lymphocytes # (Auto) 1.4 x10^3/uL (1.0-4.8) Monocytes # (Auto) 0.6 x10^3/uL (0.0-1.1) Eosinophils # (Auto) 0.3 x10^3/uL (0.0-0.7) Basophils # (Auto) 0.0 x10^3/uL (0.0-0.2) Prothrombin Time 12.6 SEC (11.7-14.0) Prothromb Time International Ratio 1.0 (0.8-1.1) Activated Partial Thromboplast Time 27 SEC (24-38) Sodium Level 141 mmol/L (136-145) Potassium Level 3.3 mmol/L (3.5-5.1) Chloride Level 104 mmol/L (98-107) Carbon Dioxide Level 27 mmol/L (21-32) Anion Gap 10 (6-14) Blood Urea Nitrogen 9 mg/dL (7-20) Creatinine 0.8 mg/dL (0.6-1.0) Estimated GFR (Cockcroft-Gault) 69.9 BUN/Creatinine Ratio 11 (6-20) Glucose Level 127 mg/dL (70-99) Calcium Level 8.3 mg/dL (8.5-10.1) Total Bilirubin 0.4 mg/dL (0.2-1.0) Aspartate Amino Transf (AST/SGOT) 22 U/L (15-37) Alanine Aminotransferase (ALT/SGPT) 18 U/L (14-59) Alkaline Phosphatase 84 U/L (46-116) Troponin I Quantitative < 0.017 ng/mL (0.000-0.055) 0.103 ng/mL (0.000-0.055) 0.047 ng/mL (0.000-0.055) KR-Dat-V-Type Natriuretic Peptide 121 pg/mL (0-449) Total Protein 6.9 g/dL (6.4-8.2) Albumin 3.3 g/dL (3.4-5.0) Albumin/Globulin Ratio 0.9 (1.0-1.7) Lipase 153 U/L (73-393) Images Images CT chest scan with no evidence dissection, no pulmonary emboli. Patient does have a small hiatal hernia. Assessment/Plan Assessment/Plan 1. Chest pain. Patient is feeling better today. Patient has had no acute EKG changes and troponins thus far have been normal. CT scan of the chest showed no evidence of dissection and no pulmonary emboli. At this time we'll complete rule out myocardial infarction protocol. We'll continue medications as above. We 'll proceed with a stress test once myocardial infarction has been excluded. Risks and benefits of this were discussed with the patient. 2. Accelerated hypertension. Patient's blood pressure is under better control. Will continue medical treatment. 3. Small hiatal hernia. Chest pain possibly secondary to GI etiologies. 4. History of asthma. Lungs are clear at this time. We'll continue present treatments. 5. Mild systolic murmur. In the setting of her murmur and her accelerated hypertension we'll check an echocardiogram. Thank you for allowing us to participate in the care of your patient. DARIEL PATTON MD October 06, 2016 11:28
[2016-10-06] MEDS: LOSARTAN POTASSIUM 50 MG TABLET. PO SCH (12:57)
[2016-10-06 14:27] LABS: BILIRUBIN,URINE NEGATIVE (NEG); GLUCOSE,URINE NEGATIVE (NEG); NITRITE,URINE NEGATIVE (NEG); PH,URINE 6.5; PROTEIN,URINE NEGATIVE (NEG-TRACE); UROBILINOGEN,URINE 0.2 mg/dL (0.2 mg/dL)
[2016-10-06 14:36] LABS: BACTERIA,URINE 0 /HPF (0-FEW); RBC,URINE 0 /HPF (0-2); SQUAMOUS EPITHELIAL CELL,UR FEW /LPF; WBC,URINE OCC /HPF (0-4)
[2016-10-06 15:00] VITALS: BP 187/87
[2016-10-06 19:15] VITALS: BP 157/77
[2016-10-06 23:00] VITALS: BP 137/64
[2016-10-07 03:45] VITALS: BP 140/75
[2016-10-07 05:39] LABS: CALCIUM 8.6 mg/dL (8.5-10.1); CREATININE 0.8 mg/dL (0.6-1.0); GFR 69.9; POTASSIUM 3.6 mmol/L (3.5-5.1)
[2016-10-07 05:41] LABS: CHOLESTEROL/HDL RATIO 2.3
[2016-10-07 07:00] VITALS: BP 165/84
[2016-10-07] MEDS: BUDESONIDE 0.5 MG/2 ML NEBU. NEB SCH (08:01)
[2016-10-07] MEDS ORDERED: FLUTICASONE 50MCG/NASAL SPRAY 16GM BOTTLE. NS SCH (09:00)
[2016-10-07] MEDS ORDERED: REGADENOSON 0.4 MG/5 ML DISP.SYRIN. IV ONE (10:00)
[2016-10-07 11:00] VITALS: BP 150/65
[2016-10-07] MEDS: FLUTICASONE 50MCG/NASAL SPRAY 16GM BOTTLE. NS SCH (12:22)
[2016-10-07] MEDS: LOSARTAN POTASSIUM 50 MG TABLET. PO SCH (12:23)
[2016-10-07] MEDS ORDERED: AMLO2.5T2 PO (12:36)
[2016-10-07] MEDS ORDERED: PROAIR HFA8.5 GM INH (12:36)
[2016-10-07] MEDS ORDERED: amLODIPine BESYLATE 2.5 MG TABLET PO SCH (12:45)
--- NOTE | 2016-10-07 13:29 | PDOC ---
PROGRESS NOTES Subjective Subjective No chest pain overnight. Objective Objective Vital Signs Date Time Temp Pulse Resp B/P (MAP) Pulse Ox O2 Delivery O2 Flow Rate FiO2 10/07/16 12:23 80 150/65 10/07/16 11:00 97.9 18 97 Room Air 97.9 Intake and Output 10/07/16 07:00 Intake Total 760 ml Output Total 1500 ml Balance -740 ml Intake Oral 760 ml Output Urine Total 1500 ml Physical Exam Abdomen: Normal bowel sounds Heart: Regular rate Extremities: No clubbing General: No acute distress HEENT: Atraumatic Lungs: Clear to auscultation Assessment Assessment Problems Medical Problems: (1) Accelerated hypertension Status: Acute (2) Chest pain Status: Acute (3) Hypokalemia Status: Acute Assessment/Plan 1. Chest pain. No chest pain overnight. No acute EKG changes. Normal troponin. CT scan of the chest showed no evidence of dissection and no pulmonary emboli. We'll continue present medications. Stress testing and echocardiogram today. 2. Accelerated hypertension. Patient's blood pressure is under better control. Will continue medical treatment. 3. Small hiatal hernia. Chest pain possibly secondary to GI etiologies. 4. History of asthma. Lungs are clear at this time. We'll continue present treatments. 5. Mild systolic murmur. In the setting of her murmur and her accelerated hypertension we'll check an echocardiogram. Comment Review of Relevant I have reviewed the following items felipa (where applicable) has been applied. Labs Laboratory Tests Test 10/05/16 17:09 10/06/16 02:30 10/06/16 07:40 10/06/16 13:20 White Blood Count 6.6 x10^3/uL (4.0-11.0) Red Blood Count 4.28 x10^6/uL (3.50-5.40) Hemoglobin 12.7 g/dL (12.0-15.5) Hematocrit 37.8 % (36.0-47.0) Mean Corpuscular Volume 88 fL (79-100) Mean Corpuscular Hemoglobin 30 pg (25-35) Mean Corpuscular Hemoglobin Concent 34 g/dL (31-37) Red Cell Distribution Width 14.2 % (11.5-14.5) Platelet Count 256 x10^3/uL (140-400) Neutrophils (%) (Auto) 64 % (31-73) Lymphocytes (%) (Auto) 21 % (24-48) Monocytes (%) (Auto) 9 % (0-9) Eosinophils (%) (Auto) 4 % (0-3) Basophils (%) (Auto) 1 % (0-3) Neutrophils # (Auto) 4.3 x10^3uL (1.8-7.7) Lymphocytes # (Auto) 1.4 x10^3/uL (1.0-4.8) Monocytes # (Auto) 0.6 x10^3/uL (0.0-1.1) Eosinophils # (Auto) 0.3 x10^3/uL (0.0-0.7) Basophils # (Auto) 0.0 x10^3/uL (0.0-0.2) Prothrombin Time 12.6 SEC (11.7-14.0) Prothromb Time International Ratio 1.0 (0.8-1.1) Activated Partial Thromboplast Time 27 SEC (24-38) Sodium Level 141 mmol/L (136-145) Potassium Level 3.3 mmol/L (3.5-5.1) Chloride Level 104 mmol/L (98-107) Carbon Dioxide Level 27 mmol/L (21-32) Anion Gap 10 (6-14) Blood Urea Nitrogen 9 mg/dL (7-20) Creatinine 0.8 mg/dL (0.6-1.0) Estimated GFR (Cockcroft-Gault) 69.9 BUN/Creatinine Ratio 11 (6-20) Glucose Level 127 mg/dL (70-99) Calcium Level 8.3 mg/dL (8.5-10.1) Total Bilirubin 0.4 mg/dL (0.2-1.0) Aspartate Amino Transf (AST/SGOT) 22 U/L (15-37) Alanine Aminotransferase (ALT/SGPT) 18 U/L (14-59) Alkaline Phosphatase 84 U/L (46-116) Troponin I Quantitative < 0.017 ng/mL (0.000-0.055) 0.103 ng/mL (0.000-0.055) 0.047 ng/mL (0.000-0.055) HP-Vrk-K-Type Natriuretic Peptide 121 pg/mL (0-449) Total Protein 6.9 g/dL (6.4-8.2) Albumin 3.3 g/dL (3.4-5.0) Albumin/Globulin Ratio 0.9 (1.0-1.7) Lipase 153 U/L (73-393) Urine Collection Type Unknown Urine Color Yellow Urine Clarity Clear Urine pH 6.5 Urine Specific [place] 1.010 Urine Protein Negative mg/dL (NEG-TRACE) Urine Glucose (UA) Negative mg/dL (NEG) Urine Ketones (Stick) Trace mg/dL (NEG) Urine Blood Negative (NEG) Urine Nitrite Negative (NEG) Urine Bilirubin Negative (NEG) Urine Urobilinogen Dipstick 0.2 mg/dL (0.2 mg/dL) Urine Leukocyte Esterase Small (NEG) Urine RBC 0 /HPF (0-2) Urine WBC Occ /HPF (0-4) Urine Squamous Epithelial Cells Few /LPF Urine Bacteria 0 /HPF (0-FEW) Urine Mucus Slight /LPF Test 10/07/16 04:00 Sodium Level 138 mmol/L (136-145) Potassium Level 3.6 mmol/L (3.5-5.1) Chloride Level 104 mmol/L (98-107) Carbon Dioxide Level 27 mmol/L (21-32) Anion Gap 7 (6-14) Blood Urea Nitrogen 5 mg/dL (7-20) Creatinine 0.8 mg/dL (0.6-1.0) Estimated GFR (Cockcroft-Gault) 69.9 Glucose Level 90 mg/dL (70-99) Calcium Level 8.6 mg/dL (8.5-10.1) Triglycerides Level 64 mg/dL (0-150) Cholesterol Level 156 mg/dL (0-200) LDL Cholesterol, Calculated 76 mg/dL (0-100) VLDL Cholesterol, Calculated 13 mg/dL (0-40) Non-HDL Cholesterol Calculated 89 mg/dL (0-129) HDL Cholesterol 67 mg/dL (40-60) Cholesterol/HDL Ratio 2.3 Laboratory Tests Test 10/07/16 04:00 Sodium Level 138 mmol/L (136-145) Potassium Level 3.6 mmol/L (3.5-5.1) Chloride Level 104 mmol/L (98-107) Carbon Dioxide Level 27 mmol/L (21-32) Anion Gap 7 (6-14) Blood Urea Nitrogen 5 mg/dL (7-20) Creatinine 0.8 mg/dL (0.6-1.0) Estimated GFR (Cockcroft-Gault) 69.9 Glucose Level 90 mg/dL (70-99) Calcium Level 8.6 mg/dL (8.5-10.1) Triglycerides Level 64 mg/dL (0-150) Cholesterol Level 156 mg/dL (0-200) LDL Cholesterol, Calculated 76 mg/dL (0-100) VLDL Cholesterol, Calculated 13 mg/dL (0-40) Non-HDL Cholesterol Calculated 89 mg/dL (0-129) HDL Cholesterol 67 mg/dL (40-60) Cholesterol/HDL Ratio 2.3 Medications Current Medications Iohexol (Omnipaque 350 Mg/ml) 100 ml 1X ONCE IV Last administered on 10/05/16 18:15; Start 10/05/16 at 18:15; Stop 10/05/16 at 18:16; Status DC Info (Do NOT chart on this entry -- for MONITORING) 1 each PRN DAILY PRN MC SEE COMMENTS; Start 10/05/16 at 18:15; Stop 10/07/16 at 18:14 Hydralazine HCl (Apresoline) 10 mg 1X ONCE IVP Last administered on 10/05/16 19:53; Start 10/05/16 at 19:30; Stop 10/05/16 at 19:31; Status DC Ondansetron HCl (Zofran) 4 mg PRN Q8HRS PRN IV NAUSEA/VOMITING; Start 10/05/16 at 20:15; Stop 10/06/16 at 20:14; Status DC Morphine Sulfate 2 mg PRN Q2HR PRN IV PAIN; Start 10/05/16 at 20:15; Stop at 20:14; Status DC Acetaminophen (Tylenol) 650 mg PRN Q4HRS PRN PO FEVER Last administered on 00:22; Start 10/05/16 at 20:15; Stop 10/06/16 at 20:14; Status DC Nitroglycerin (Nitrostat) 0.4 mg PRN Q5MIN PRN SL CHEST PAIN; Start 10/05/16 at 20:15; Stop 10/06/16 at 20:14; Status DC Labetalol HCl (Normodyne) 20 mg PRN Q2HR PRN IVP HYPERTENSION, SEE COMMENTS Last administered on 10/06/16 14:55; Start 10/05/16 at 21:30 Potassium Chloride (Klor-Con) 40 meq 1X ONCE PO Last administered on 10/05/16 21:34; Start 10/05/16 at 21:30; Stop 10/05/16 at 21:31; Status DC Diphenhydramine HCl (Benadryl) 25 mg PRN QHS PRN PO INSOMNIA Last administered on 10/05/16 21:34; Start 10/05/16 at 21:30; Stop 10/06/16 at 10:26; Status DC Fluticasone Propionate (Flonase) 2 spray DAILY NS Last administered on 12:22; Start 10/06/16 at 09:00 Losartan Potassium (Cozaar) 100 mg HS PO Last administered on 10/05/16 21:34; Start 10/05/16 at 21:30; Stop 10/06/16 at 10:26; Status DC Budesonide (Pulmicort) 0.5 mg RTBID NEB Last administered on 10/07/16 08:01; Start 10/06/16 at 08:00 Potassium Chloride (KCl Oral Soln) 40 meq 1X ONCE PO ; Start 10/05/16 at 22:45; Stop 10/05/16 at 22:46; Status DC Diphenhydramine HCl (Benadryl) 25 mg PRN QHS PRN PO COMM; Start 10/06/16 at 10: 00 Budesonide (Pulmicort) 0.5 mg RTBID NEB Last administered on 10/06/16 10:08; Start 10/06/16 at 10:00; Stop 10/06/16 at 10:26; Status DC Fluticasone Propionate (Flonase) 2 spray DAILY NS ; Start 10/07/16 at 09:00; Stop 10/07/16 at 09:00; Status DC Losartan Potassium (Cozaar) 100 mg DAILY PO Last administered on 10/07/16 12:23 ; Start 10/06/16 at 10:00 Budesonide (Pulmicort) 0.5 mg RTBID NEB ; Start 10/06/16 at 20:00; Status Cancel Budesonide (Pulmicort) 0.5 mg 1X ONCE NEB ; Start 10/06/16 at 10:15; Stop at 10:25; Status DC Regadenoson (Lexiscan) 0.4 mg 1X ONCE IV Last administered on 10/07/16t 10:19; Start 10/07/16 at 10:00; Stop 10/07/16 at 10:01; Status DC Amlodipine Besylate (Norvasc) 2.5 mg DAILY PO ; Start 10/07/16 at 12:45 Active Scripts Active Reported Benadryl (Diphenhydramine Hcl) 25 Mg Capsule 1 Cap PO QHS PRN Flonase Allergy Relief (Fluticasone Propionate) 9.9 Ml [place].susp 2 Sprays NS DAILY Losartan Potassium 100 Mg Tablet 100 Mg PO HS Pulmicort Flexhaler (Budesonide) 180 Mcg Aer.pow.ba 1 Puff IH BID Vitals/I & O Vital Sign - Last 24 Hours 10/06/16 10/06/16 10/06/16 10/06/16 14:55 15:00 19:15 20:00 Temp 98.4 97.7 98.4 97.7 Pulse 97 77 87 Resp 18 18 B/P (MAP) 187/87 187/87 (120) 157/77 (103) Pulse Ox 95 96 100 O2 Delivery Room Air Room Air Room Air 10/06/16 10/06/16 10/07/16 10/07/16 20:12 23:00 03:45 07:00 Temp 98.6 98.0 98.6 98.6 98.0 98.6 Pulse 83 78 79 Resp 18 18 18 B/P (MAP) 137/64 (88) 140/75 (96) 165/84 (111) Pulse Ox 94 93 96 O2 Delivery Room Air Room Air Room Air Room Air 10/07/16 10/07/16 10/07/16 10/07/16 07:50 08:02 11:00 12:23 Temp 97.9 97.9 Pulse 80 80 Resp 18 B/P (MAP) 150/65 (93) 150/65 Pulse Ox 97 O2 Delivery Room Air Room Air Room Air Intake and Output 10/06/16 10/06/16 10/07/16 15:00 23:00 07:00 Intake Total 420 ml 340 ml Output Total 400 ml 950 ml 150 ml Balance -400 ml -530 ml 190 ml DARIEL PATTON MD October 07, 2016 13:29
[2016-10-07 13:36] VITALS: BP 150/65
--- NOTE | 2016-10-07 14:30 | CARD ---
APPROVED REPORT EXAM: Two-dimensional and M-mode echocardiogram with Doppler and color Doppler. Other Information Quality : FairHR: 122bpm INDICATION Chest Pain Murmur 2D DIMENSIONS Left Atrium(2D)2.9 (1.6-4.0cm)IVSd1.1 (0.7-1.1cm) Aortic Root(2D)2.9 (2.0-3.7cm)LVDd3.5 (3.9-5.9cm) LVOT Diameter2.1 (1.8-2.4cm)PWd1.1 (0.7-1.1cm) LA Kcnzdc24 (18-58mL)LVDs2.2 (2.5-4.0cm) FS (%) 38.3 %SV35.3 ml CO4.3 L/min M-Mode DIMENSIONS Aortic Cusp Exc1.61 (1.5-2.0cm) Aortic Valve AoV Peak Daniel.159.8cm/sAoV VTI27.8cm AO Peak GR.10.2mmHgLVOT VTI 22.82cm AO Mean GR.6mmHg Mitral Valve MV E Zmrxmypf11.4cm/sMV E Peak Gr.3mmHg MV DECEL [id number] A Jtfejcyi179.5cm/s MV E Mean Gr.4mmHgMV [id number] E/A Ratio0.8MV A Onysvwod398fz MVA (PHT)3.24cm2 TDI Lateral E' P. V6.26cm/sMedial E' P. V7.68cm/s E/Lateral E'14.1E/Medial E'11.5 Pulmonary Valve PV Peak Xpzjvblf068.6cm/s Tricuspid Valve TR P. Kzvxdjtc151wv/sTR Peak Gr.44mmHg Pulmonary Vein S1 Pqdugrep77.2cm/s LEFT VENTRICLE The left ventricle is normal size. There is borderline concentric left ventricular hypertrophy. The l eft ventricular systolic function is normal. The ejection fraction is 60-65%. There is normal LV segm ental wall motion. Transmitral Doppler flow pattern is Grade I-abnormal relaxation pattern. No left v entricle thrombus noted on this study. There is no ventricular septal defect visualized. There is no left ventricular aneurysm. There is no mass noted in the left ventricle. RIGHT VENTRICLE The right ventricle is normal size. There is normal right ventricular wall thickness. The right ventr icular systolic function is normal. ATRIA The left atrium size is normal. The right atrium size is normal. The interatrial septum is intact wit h no evidence for an atrial septal defect or patent foramen ovale as noted on 2-D or Doppler imaging. AORTIC VALVE The aortic valve is normal in structure and function. Doppler and Color Flow revealed no significant aortic regurgitation. There is no significant aortic valvular stenosis. There is no aortic valvular v egetation. MITRAL VALVE The mitral valve is normal in structure and function. There is no evidence of mitral valve prolapse. There is no mitral valve stenosis. Doppler and Color-flow revealed trace to mild mitral regurgitation . TRICUSPID VALVE The tricuspid valve is normal in structure and function. Doppler and Color Flow revealed trace to mil d tricuspid regurgitation. There is no tricuspid valve prolapse or vegetation. There is no tricuspid valve stenosis. PULMONIC VALVE The pulmonary valve is normal in structure and function. Doppler and Color Flow revealed no pulmonic valvular regurgitation. There is no pulmonic valvular stenosis. GREAT VESSELS The aortic root is normal in size. The ascending aorta is normal in size. The IVC was not visualized. PERICARDIAL EFFUSION There is no pleural effusion. There is no evidence of significant pericardial effusion. Critical Notification Critical Value: No <Conclusion> The left ventricle is normal size. The left ventricular systolic function is normal. The ejection fraction is 60-65%. There is borderline concentric left ventricular hypertrophy. There is no significant aortic valvular stenosis. Doppler and Color Flow revealed no significant aortic regurgitation. Doppler and Color-flow revealed trace to mild mitral regurgitation. Doppler and Color Flow revealed trace to mild tricuspid regurgitation. There is no evidence of significant pericardial effusion.
--- NOTE | 2016-10-07 14:37 | RAD ---
APPROVED REPORT Test Type: Pharmacological Stress Nurse/Tech: Jossy Joel R.N. Test Indications: Lungs CTA, S1, S2 Cardiac History: See EHR Medications: See EHR Medical History: See EHR Resting ECG: SR Resting Heart Rate: 83 bpm Resting Blood Pressure: 177/99mmHg Pretest Chest Pain: None Nurse/Tech Notes Lungs CTA, S1, S2 Consent: The procedure was explained to the patient in lay terms. Informed consent was witnessed. Kj eout was entered into [employer]. History and Stress Test performed by Jossy Joel R.N. Pharm. Details Pharmacologic stress testing was performed using 0.4mg per 5ml of regadenoson given intravenously ove r 7-10 seconds. Stress Symptoms No chest pain or symptoms. POST EXERCISE Reason for Termination: Infusion complete Max HR: 110 bpm Max Blood Pressure: 176/92mmHg Blood Pressure response to exercise: Abnormal blood pressure response during stress.Normal blood pres sure response during stress. Chest Pain: No. Arrhythmia: No. ST Change: No. INTERPRETATION Stress EKG Conclusion: The resting EKG shows a sinus rhythm with nonspecific ST-T wave changes in the inferior leads. The stress EKG shows no significant changes from baseline. No EKG evidence of stress-induced ischemia. Imaging Protocol IMAGE PROTOCOL: Rest Tc-99m/stress Tc-99m 1 day Rest: Stress: Viability: Radiopharm.Tc99m [id number] Sestamibi Tnue25rVx 32mCi Img Date 10/07/2016 10/07/2016 Inj-Img [id number]. 45min. Rest Admin Site:IV - Left WristAdministrator:VERONICA Vigil, ARRT (R)(N) Stress Admin Site: IV - Left WristAdministrator: VERONICA Vigil, ARRT (R)(N) STRESS DATA End Diast. Vol.56.0mlAv. Heart Rate94.0bpm End Syst. Vol.1.0mlCO Index BSA0.0L/min Myocardial Wvay275.0gEject. Iyfbcire51.0% Stress Rates Pk. Fill Rate3.58EDV/secLVtime Pk. Fill 162.02msec Pk. Empty Rate5.12ESV/secLVtime Pk. Wsivb854.22msec 1/3 Pk. Fill1.00EDV/sec Stress Scores Regional WT0.00Summed WT1.00 Regional WM0.00Summed WM0.00 LV Perfusion The stress scans showed no significant defects. The rest scans showed no significant defects. Nuclear imaging shows no reversible ischemia or infarct. Wall Motion Normal left ventricular systolic function with an ejection fraction of greater than 70%. LV Perf. Quant 17 Seg. SSS0.00 17 Seg. SRS3.00 17 Seg. SDS0.00 Stress Defect Extent (% LAD)0.00Rest Defect Extent (% LAD)0.00Rev. Defect Extent (% LAD)0.00 Stress Defect Extent (% LCX) 0.00Rest Defect Extent (% LCX)3.80Rev. Defect Extent (% LCX)0.00 Stress Defect Extent (% RCA)0.00Rest Defect Extent (% RCA)0.00Rev. Defect Extent (% RCA)0.00 Stress Defect Extent (% CLIFF)0.00Rest Defect Extent (% CLIFF)1.30Rev. Defect Extent (% CLIFF)0.00 Conclusion 1. No EKG evidence of stress-induced ischemia. 2. Nuclear imaging shows no reversible ischemia or infarct. 3. Normal left ventricular systolic function with an ejection fraction of greater than 70%. 4. Low risk Lexiscan nuclear stress test.
--- NOTE | 2016-10-07 15:04 | PDOC3 ---
Discharge Summary Visit Information Date of Admission: October 06, 2016 Date of Discharge: October 07, 2016 Admitting Diagnosis: chest pain Final Diagnosis 1. Chest pain. 2. Accelerated hypertension. 3. Small hiatal hernia. consider GERD pain for outpatient management 4. History of asthma. 5. Mild systolic murmur. 6. Htn, early diastolic dysfunction, add norvasc CommentProblems Medical Problems: (1) Accelerated hypertension Status: Acute (2) Chest pain Status: Acute (3) Hypokalemia Status: Acute Brief Hospital Course Allergies Allergies Coded Allergies Type Severity Reaction Last Updated Verified cephalexin Allergy Intermediate 10/05/16 Yes codeine Adverse Reaction Mild violently ill 10/05/16 Yes Vital Signs Vital Signs Date Time Temp Pulse Resp B/P (MAP) Pulse Ox O2 Delivery O2 Flow Rate FiO2 10/07/16 13:36 80 150/65 10/07/16 11:00 97.9 18 97 Room Air 97.9 Lab Results Laboratory Tests Test 10/05/16 17:09 10/06/16 02:30 10/06/16 07:40 10/06/16 13:20 White Blood Count 6.6 x10^3/uL (4.0-11.0) Red Blood Count 4.28 x10^6/uL (3.50-5.40) Hemoglobin 12.7 g/dL (12.0-15.5) Hematocrit 37.8 % (36.0-47.0) Mean Corpuscular Volume 88 fL (79-100) Mean Corpuscular Hemoglobin 30 pg (25-35) Mean Corpuscular Hemoglobin Concent 34 g/dL (31-37) Red Cell Distribution Width 14.2 % (11.5-14.5) Platelet Count 256 x10^3/uL (140-400) Neutrophils (%) (Auto) 64 % (31-73) Lymphocytes (%) (Auto) 21 % (24-48) Monocytes (%) (Auto) 9 % (0-9) Eosinophils (%) (Auto) 4 % (0-3) Basophils (%) (Auto) 1 % (0-3) Neutrophils # (Auto) 4.3 x10^3uL (1.8-7.7) Lymphocytes # (Auto) 1.4 x10^3/uL (1.0-4.8) Monocytes # (Auto) 0.6 x10^3/uL (0.0-1.1) Eosinophils # (Auto) 0.3 x10^3/uL (0.0-0.7) Basophils # (Auto) 0.0 x10^3/uL (0.0-0.2) Prothrombin Time 12.6 SEC (11.7-14.0) Prothromb Time International Ratio 1.0 (0.8-1.1) Activated Partial Thromboplast Time 27 SEC (24-38) Sodium Level 141 mmol/L (136-145) Potassium Level 3.3 mmol/L (3.5-5.1) Chloride Level 104 mmol/L (98-107) Carbon Dioxide Level 27 mmol/L (21-32) Anion Gap 10 (6-14) Blood Urea Nitrogen 9 mg/dL (7-20) Creatinine 0.8 mg/dL (0.6-1.0) Estimated GFR (Cockcroft-Gault) 69.9 BUN/Creatinine Ratio 11 (6-20) Glucose Level 127 mg/dL (70-99) Calcium Level 8.3 mg/dL (8.5-10.1) Total Bilirubin 0.4 mg/dL (0.2-1.0) Aspartate Amino Transf (AST/SGOT) 22 U/L (15-37) Alanine Aminotransferase (ALT/SGPT) 18 U/L (14-59) Alkaline Phosphatase 84 U/L (46-116) Troponin I Quantitative < 0.017 ng/mL (0.000-0.055) 0.103 ng/mL (0.000-0.055) 0.047 ng/mL (0.000-0.055) LQ-Vzz-X-Type Natriuretic Peptide 121 pg/mL (0-449) Total Protein 6.9 g/dL (6.4-8.2) Albumin 3.3 g/dL (3.4-5.0) Albumin/Globulin Ratio 0.9 (1.0-1.7) Lipase 153 U/L (73-393) Urine Collection Type Unknown Urine Color Yellow Urine Clarity Clear Urine pH 6.5 Urine Specific [place] 1.010 Urine Protein Negative mg/dL (NEG-TRACE) Urine Glucose (UA) Negative mg/dL (NEG) Urine Ketones (Stick) Trace mg/dL (NEG) Urine Blood Negative (NEG) Urine Nitrite Negative (NEG) Urine Bilirubin Negative (NEG) Urine Urobilinogen Dipstick 0.2 mg/dL (0.2 mg/dL) Urine Leukocyte Esterase Small (NEG) Urine RBC 0 /HPF (0-2) Urine WBC Occ /HPF (0-4) Urine Squamous Epithelial Cells Few /LPF Urine Bacteria 0 /HPF (0-FEW) Urine Mucus Slight /LPF Test 10/07/16 04:00 Sodium Level 138 mmol/L (136-145) Potassium Level 3.6 mmol/L (3.5-5.1) Chloride Level 104 mmol/L (98-107) Carbon Dioxide Level 27 mmol/L (21-32) Anion Gap 7 (6-14) Blood Urea Nitrogen 5 mg/dL (7-20) Creatinine 0.8 mg/dL (0.6-1.0) Estimated GFR (Cockcroft-Gault) 69.9 Glucose Level 90 mg/dL (70-99) Calcium Level 8.6 mg/dL (8.5-10.1) Triglycerides Level 64 mg/dL (0-150) Cholesterol Level 156 mg/dL (0-200) LDL Cholesterol, Calculated 76 mg/dL (0-100) VLDL Cholesterol, Calculated 13 mg/dL (0-40) Non-HDL Cholesterol Calculated 89 mg/dL (0-129) HDL Cholesterol 67 mg/dL (40-60) Cholesterol/HDL Ratio 2.3 Laboratory Tests Test 10/07/16 04:00 Sodium Level 138 mmol/L (136-145) Potassium Level 3.6 mmol/L (3.5-5.1) Chloride Level 104 mmol/L (98-107) Carbon Dioxide Level 27 mmol/L (21-32) Anion Gap 7 (6-14) Blood Urea Nitrogen 5 mg/dL (7-20) Creatinine 0.8 mg/dL (0.6-1.0) Estimated GFR (Cockcroft-Gault) 69.9 Glucose Level 90 mg/dL (70-99) Calcium Level 8.6 mg/dL (8.5-10.1) Triglycerides Level 64 mg/dL (0-150) Cholesterol Level 156 mg/dL (0-200) LDL Cholesterol, Calculated 76 mg/dL (0-100) VLDL Cholesterol, Calculated 13 mg/dL (0-40) Non-HDL Cholesterol Calculated 89 mg/dL (0-129) HDL Cholesterol 67 mg/dL (40-60) Cholesterol/HDL Ratio 2.3 Brief Hospital Course Ms. Huang is a 76 old female, admit for acute chest pain, dyspnea tx asthma, w/u angina, r.o acs enzymes X3 echo OK, listed below MPI neg, No acute EKG changes. Normal troponin. CT scan of the chest showed no evidence of dissection and no pulmonary emboli. Accelerated hypertension. add norvasc cont asthma meds consider H2 brandie for acid reflux Discharge Information Condition at Discharge: Improved Follow Up: Weeks Disposition/Orders: D/C to Home Scheduled Amlodipine Besylate (Norvasc), 1 TAB PO DAILY Budesonide (Pulmicort Flexhaler), 1 PUFF IH BID, (Reported) Fluticasone Propionate (Flonase Allergy Relief), 2 SPRAYS NS DAILY, (Reported) Losartan Potassium (Losartan Potassium), 100 MG PO HS, (Reported) Scheduled PRN Albuterol Sulfate (Proair Hfa Inhaler), 1 PUFF INH PRN Q6HRS PRN for SHORTNESS OF BREATH Diphenhydramine Hcl (Benadryl), 1 CAP PO QHS PRN for SEE COMMENTS, (Reported) Patient Instructions Patient Instructions echo The left ventricle is normal size. The left ventricular systolic function is normal. The ejection fraction is 60-65%. There is borderline concentric left ventricular hypertrophy. MPI Conclusion 1. No EKG evidence of stress-induced ischemia. 2. Nuclear imaging shows no reversible ischemia or infarct. 3. Normal left ventricular systolic function with an ejection fraction of greater than 70%. 4. Low risk Lexiscan nuclear stress test. time > 30min VANITA QUIÑONEZ MD October 07, 2016 15:03
== END 2016-10-07 16:00 | disposition home or self-care (01) | DRG 206 ==
LOC: ER 16:58 → 2 NORTH 19:20
PROVIDERS: ADMIT Internal Medicine; ATTEND Internal Medicine
DX: M94.0 Chondrocostal junction syndrome [Tietze] (principal); D18.03 Hemangioma of intra-abdominal structures; E66.9 Obesity, unspecified; E87.6 Hypokalemia; I10 Essential (primary) hypertension; J45.909 Unspecified asthma, uncomplicated; K44.9 Diaphragmatic hernia without obstruction or gangrene; Z68.36 Body mass index [BMI] 36.0-36.9, adult; Z79.82 Long term (current) use of aspirin; Z88.6 Allergy status to analgesic agent; Z88.8 Allergy status to other drugs, medicaments and biological substances
CPT/HCPCS: 36415; 71010; 71275; 78452; 80048; 80053; 80061; 81001; 83690; 83880; 84484; 85027; 85610; 85730; 87086; 93005; 93017; 93306; 94250; 94640; 94760; 96374; 96375; 96376; A9500; J0360; J2785; J3490; Q0163; Q9967; 99285-25